=== PATIENT | female | born 1990 | race Caucasian/White ===

== ENCOUNTER → 2016-12-18 | Outpatient (CLI) | payer BC ==
--- NOTE | 2016-12-19 07:51 | DIAGNOSTIC IMAGING REPORT ---
MRI OF THE CERVICAL SPINE WITHOUT CONTRAST, FLEXION AND EXTENSION STUDY INCLUDING CSF FLOW CLINICAL HISTORY: Syringomyelia. Frequent headaches. COMPARISON STUDY: No previous studies for comparison. TECHNIQUE: Utilizing 1.5 Michaela magnet, multiplanar, multi echo imaging of the cervical spine was performed in the neutral, flexion and extension positions in the sagittal and axial planes. No intravenous contrast was administered. CSF flow was evaluated in each position. FINDINGS: There is straightening of the normal cervical lordosis. Alignment is otherwise anatomic. There is no evidence of instability during flexion or extension. No suspicious marrow replacement is present. A 1.4 cm T2 hyperintense lesion within the T3 spinous process is suboptimally assessed on this exam but likely reflects a hemangioma. There is no intracanalicular mass or fluid collection. Visualized portions of the posterior fossa are unremarkable. There is no cerebellar tonsillar ectopia. The tonsils are located at the level of the foramen magnum which is patent. There are mucous retention cyst within the maxillary and sphenoid sinuses. The central canal and neural foramen are patent. There is mild dilatation of the central canal of the cord at these C6-C7 level. 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 Visualized portions of the syrinx measure up to 3 mm in AP extent. No additional sites of cord signal abnormality are present. CSF flow is within normal limits in the neutral, flexion and extension positions. IMPRESSION: 1. 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 Visualized portions of the syrinx measure up to 3 mm in AP dimension. Mild dilatation of the central canal of the cord at the C6-C7 level suggests hydromyelia. 2. No cerebellar tonsillar ectopia. Cerebellar tonsils located at the level the foramen magnum which is patent. 3. Patent central canal and neural foramen. 4. Normal CSF flow in the neutral, flexion and extension positions. Electronically signed by: Adelso Casanova M.D. 12/19/2016 7:50 AM Dictated Date/Time: 12/18/2016 2:02 PM
== END | disposition home or self-care (01) ==
LOC: C.MRIBC 11:54
PROVIDERS: ATTEND Neurological Surgery
DX: G95.0 Syringomyelia and syringobulbia (principal)

== ENCOUNTER → 2017-07-16 | Day surgery (SDC) | payer BC, OTHER ==
--- NOTE | 2017-07-14 12:22 | History and Physical: Surg Cnt ---
History & Physical Date Jul 14, 2017. Chief Complaint polyps History of Present Illness The patient is a 26 year old female with complaints of chronic sinusitis since surgery in [place] 06/2014, polyposis Past Medical/Surgical History sinus surgery Additional History Hepatic Disease: No Endocrine Disorder: No Kidney Disease: No Hypertension: No Heart Disease: No Bleeding Tendencies: No Infectious Diseases: No Physical Examination Skin: warm/dry, no rash Eyes: normal inspection, EOMI, sclerae normal ENT: + pertinent finding (polyposis blocking middle meatus, left antrochoanal polyp) Diagnosis chronic sinusitis, polyposis Plan of Treatment endoscopic sinus surgery
[2017-07-15 13:58] VITALS: Ht 160 cm; Wt 85.9 kg
[~2017-07-16] VITALS: Ht 160 cm; Wt 85.9 kg
[~2017-07-16] MED LIST: ATROPINE SULFATE 0.1 MG/ML 5ML SYR IV PRN; AZIT250T PO; CEFAZOLIN 1000MG IV PUSH 7.5 ML IV SCH; CEFAZOLIN 2000MG IV PUSH 15 ML IV SCH; DEXAMETHASONE SOD INJ 4 MG/ML VIAL ONE; EpINEphrine INJ 1MG/ML AMP 1 MG/ML AMP ONE; FENTANYL CITRATE INJ 50 MCG/1 ML 2 ML VIAL ONE; HYDROmorphone INJ 2 MG/ML SYR/VIAL IV PRN; LABETALOL HCL IV 5 MG/ML 20ML IV PRN; LEVO88TA3 PO; LIDO 2%/EPINEPHRINE 1:100000 20 ML VIAL INFIL ONE; LIDOCAINE 4% MPF SOAK 5 ML = 1 DOSE TOP ONE; LIDOCAINE HCL 2% 2 ML VIAL (20MG/ML) ONE; METH1TAB81 PO; MIDAZOLAM HCL 1 MG/ML 2ML VIAL ONE; ONDANSETRON INJ 2 MG/ML 2 ML VIAL IV PRN; ONDANSETRON INJ 2 MG/ML 2 ML VIAL ONE; OXYC-57 PO; OXYC1TAB3 PO; PATIENT'S ALLERGY INFO NEEDS ENTERED SCH; PROPOFOL IV EMULSION 10 MG/ML 20 ML VIAL IV ONE; SCOPOLAMINE 1.5 MG TDSY TD ONE; SODIUM CHLORIDE 0.9% 1000ML 1,000 ML IV SCH
[2017-07-16] MEDS: LACTATED RINGER'S 1000ML 1,000 ML IV SCH ×2 (06:00→11:20)
--- NOTE | 2017-07-16 11:05 | DIAGNOSTIC IMAGING REPORT ---
SINUS CT CT DOSE: 285.25 mGycm HISTORY: CHRONITC SINUSITIS TECHNIQUE: Multiaxial CT images of the paranasal sinuses were performed and reformatted in the coronal plane without the use of contrast. A dose lowering technique was utilized adhering to the principles of ALARA. COMPARISON: None. FINDINGS: Partial opacification of the bilateral frontoethmoidal recesses. The left frontal sinus is clear. Mild mucosal thickening within the right frontal sinus. Small retention cysts within the sphenoid sinuses with the largest on the left measuring 1 cm. There are also a few retention cysts within the right maxillary sinus with the largest measuring 1.5 cm. Near complete opacification of the left maxillary sinus. The mastoid air cells are clear. The nasal septum is essentially midline. Prior bilateral uncinectomies and ethmoidectomies. The lamina papyracea and overall floors are intact. Prior suboccipital craniectomy. 9 mm extra-axial calcification within the right middle cranial fossa. The orbits are unremarkable. IMPRESSION: 1. Postoperative changes as described above. 2. Near-complete opacification the left maxillary sinus. This could be due to an underlying polyp or retention cyst. 3. Additional chronic sinus disease as described above. Electronically signed by: Je Ascencio M.D. 07/16/2017 11:04 AM Dictated Date/Time: 07/16/2017 10:52 AM
--- NOTE | 2017-07-16 12:50 | History & Physical Bridge Note ---
H&P Re-Evaluation Bridge Note: I have examined the patient, reviewed the History & Physical and in the interval since the performance of the History & Physical I have noted the following changes of clinical significance: No changes noted
--- NOTE | 2017-07-16 12:55 | Discharge Instructions-SurgCtr ---
Discharge Instructions Date of Service Jul 16, 2017. Visit Reason for Visit: Polyposis, Sinusitis-Ck Allergies Discharge Discharge Diagnosis / Problem: same Discharge Goals Goal(s): Improve function, Improve disease control, Therapeutic intervention Activity Recommendations Activity Limitations: resume your previous activity Anesthesia . Post Anesthesia Instructions: If you have had General Anesthesia or IV Sedation: * Do not drive today. * Resume driving when surgeon permits. * Do not make important decisions or sign legal documents today. * Call surgeon for: 1. Temperature elevations greater than 101 degrees F. 2. Uncontrollable pain. 3. Excessive bleeding. 4. Persistent nausea and vomiting. 5. Medication intolerance (nausea, vomiting or rash). * For nausea and vomiting use only clear liquids such as: tea, soda, bouillon until nausea subsides, then gradually increase diet as tolerated. * If you have any concerns or questions, call your surgeon's office. If physician is unavailable and it is an emergency, call 911 or go to the nearest emergency room. . Instructions / Follow-Up Instructions / Follow-Up ACTIVITY RECOMMENDATIONS: * Being up and around is good, but no strenuous activity, heavy lifting or physical exertion for one week. * Keep your head elevated 30 degrees when lying down or sleeping. * Do not blow your nose for 48 hours, sniff back instead. * Avoid hot showers. OVER THE COUNTER MEDICATIONS: * You may use Tylenol * Avoid aspirin or aspirin containing products, e.g. as they may increase bleeding. SPECIAL CARE INSTRUCTIONS: * Expect to have bloody drainage from your nose and/or down your throat for one to three days. Change drip pad as needed. * Begin irrigating your nose with saline solution today, at least six to ten times per day and sniff back to help remove old clots or crust. * You may experience nasal and facial congestion, pain and pressure, this is normal. * Please call with any significant and/or progressive pain, redness, swelling around the eyes, visual changes, fever of 101.5 degrees F, active bleeding or any problems or concerns. * If active bleeding occurs, spray the nose three times at one minute intervals with Afrin spray and call or cell phone: . If unable to reach the doctor, go to the nearest Emergency Department. Special Diet: * Avoid extremely hot fluids. FOLLOW UP VISIT: Follow-up Visit with Dr. Austin If not already scheduled, please call to schedule. Diet Recommendations Home Diet: no limitations Pending Studies Studies pending at discharge: no Medical Emergencies . Who to Call and When: Medical Emergencies: If at any time you feel your situation is an emergency, please call 911 immediately. . Non-Emergent Contact Non-Emergency issues call your: Primary Care Provider . . "Provider Documentation" section prepared by La Austin. . [place] Drug Monitoring Program Search Results: no issues identified
--- NOTE | 2017-07-16 13:59 | [facility] Post Operative Brief Note ---
Immediate Operative Summary Operative Date Jul 16, 2017. Pre-Operative Diagnosis Chronic Sinusitis, Polyposis Post-Operative Diagnosis Same Procedure(s) Performed Endoscopic Sinus Surgery With Frontal, Sphenoid, Total Ethmoidectomies With Brainlab Navigation Surgeon Dr. Austin Guidance Consultant Surgeon(s) None Estimated Blood Loss 40 ml Findings Consistent with Post-Op Diagnosis Specimens A.) Left Ethmoid Polyp Drains None Anesthesia Type General Complication(s) none Disposition Accompanied Pt To Recovery: yes Disposition: Recovery Room / PACU
--- NOTE | 2017-07-16 14:02 | [facility] Operative Report ---
Operative Report Operative Date Jul 16, 2017. Pre-Operative Diagnosis Chronic Sinusitis, Polyposis Post-Operative Diagnosis Same Procedure(s) Performed Endoscopic Sinus Surgery With Frontal, Sphenoid, Total Ethmoidectomies With Brainlab Navigation Surgeon Dr. Austin Global Transportation Manager Surgeon(s) None Estimated Blood Loss 40 ml Specimens A.) Left Ethmoid Polyp Drains None Anesthesia Type General Complication(s) none Disposition yes Recovery Room / PACU Indications 26-year-old female with polyposis including left antrochoanal polyp Description of Procedure The patient was brought to the operating room and placed in the supine position. She was prepped and draped in the usual sterile condition. Scaled Inference device calibrated and used for the entire procedure. The nose was decongested using topical cottonoids with a solution of 4 cc of 4% Xylocaine mixed with 1 cc of epinephrine. Injection of 2% Xylocaine with 1-100,000 strength epinephrine was also used. The left sphenoid was cannulated with the guidewire with Scaled Inference computer guidance and dilated with a 6 mm balloon. The right sphenoid was also dilated in the same manner. The left nasal frontal duct was cannulated with guidewire and dilated using the 6 mm balloon with Scaled Inference computer guidance. The guidewire was left in place as a marker for frontal sinusotomy. The adhesions and the scar tissue and the osteitis along with multiple polyps were removed to open up the agger nasi cell area removing the residual anterior and posterior wall of the agger nasi cell to open up the nasal frontal duct. Adhesions from the middle turbinate laterally blocking the maxillary sinus were removed using the shaver. The large left antrochoanal polyp along with the cyst was removed using upward Blakesley forceps. The sphenoid was opened by removing adhesions at the posterior and of the middle turbinate. The right frontal sinusotomy sphenoidotomy total ethmoidectomy and maxillary antrostomy was performed in a similar manner. Contour stents were placed into the nasal frontal duct one on each side. Propel stents were placed into the middle meatus area, one on each side. The patient her procedure well and was taken recovery area in satisfactory condition. I attest to the content of the Intraoperative Record and any orders documented therein. Any exceptions are noted below.
--- NOTE | 2017-07-16 14:15 | Anesthesia Progress Nt - [facility] ---
Anesthesia Post Op Note Date & Time Jul 16, 2017 at 14:15 Vital Signs Vital Signs Past 12 Hours Date Time Temp Pulse Resp B/P (MAP) Pulse Ox O2 Delivery O2 Flow Rate FiO2 07/16/17 14:11 90 16 136/90 100 07/16/17 14:11 91 16 07/16/17 14:06 94 14 07/16/17 14:06 94 14 137/88 100 07/16/17 14:01 98 16 07/16/17 14:01 98 16 145/89 100 07/16/17 13:56 107 14 128/82 100 07/16/17 13:56 105 14 07/16/17 13:52 134/85 07/16/17 13:51 36.2 108 12 134/85 100 Humidified Oxygen 6 Mask 07/16/17 11:03 36.7 84 20 125/86 (99) 100 Room Air Notes Mental Status: alert / awake / arousable, participated in evaluation Pt Amnestic to Procedure: Yes Nausea / Vomiting: adequately controlled Pain: adequately controlled Airway Patency, RR, SpO2: stable & adequate BP & HR: stable & adequate Hydration State: stable & adequate Anesthetic Complications: no major complications apparent
[2017-07-16 14:32] VITALS: TEMP 36.5
[2017-07-16 15:09] VITALS: BP 122/85; PULSE 75; O2SAT 100
== END | disposition home or self-care (01) ==
LOC: X.SURG 10:48
PROVIDERS: ATTEND Otolaryngology
DX: J32.9 Chronic sinusitis, unspecified (principal); J33.8 Other polyp of sinus; Z88.2 Allergy status to sulfonamides; Z98.890 Other specified postprocedural states; E66.9 Obesity, unspecified; Z68.33 Body mass index [BMI] 33.0-33.9, adult; Z88.8 Allergy status to other drugs, medicaments and biological substances